=== PATIENT | female | born 1960 | race Caucasian/White ===

== ENCOUNTER 2021-05-21 23:02 | Emergency (ER) | payer BC, OTHER ==
[~2021-05-21] VITALS: Ht 165.1 cm; Wt 72.8 kg
--- NOTE | 2021-05-21 23:15 | NUR ---
Patient walked into ER A/Ox3 with steady gait c/o dizziness with nausea that started about 40mins [employer]. 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
[2021-05-21] MEDS ORDERED: ONDANSETRON ODT 4 MG TAB.RAPDIS ONE (23:28)
--- NOTE | 2021-05-21 23:29 | NUR ---
After patient was given zofran ODT patient vomited x1.
[2021-05-21] MEDS ORDERED: ONDANSETRON ODT 4 MG TAB.RAPDIS SL ONE (23:30)
[2021-05-21] MEDS ORDERED: IV NORMAL SALINE 1000 ML BAG IV ONE (23:30)
[2021-05-21] MEDS ORDERED: MECLIZINE HCL 25 MG TABLET PO ONE (23:30)
[2021-05-21] MEDS ORDERED: ONDANSETRON 4 MG/2 ML VIAL IV ONE (23:30)
--- NOTE | 2021-05-21 23:32 | NUR ---
After vomiting patient states "I feel better now."
--- NOTE | 2021-05-21 23:34 | NUR ---
Patient out of unit for ct scan via g[place].
[2021-05-21] MEDS ORDERED: ONDANSETRON 4 MG/2 ML VIAL ONE (23:39)
[2021-05-21] MEDS ORDERED: MECLIZINE HCL 25 MG TABLET ONE (23:39)
--- NOTE | 2021-05-21 23:44 | NUR ---
Patient back from ct scan with no distress noted.
[2021-05-21 23:50] LABS: HEMATOCRIT 42.5 % (31.2-41.9); MEAN CORPUSCULAR VOLUME 87.7 fL (75.5-95.3); PLATELET COUNT (AUTO) 221 K/uL (179-408)
[2021-05-22 00:05] LABS: CREATININE 0.8 mg/dL (0.6-1.3); POTASSIUM 3.8 mmol/L (3.5-5.1)
[2021-05-22 00:10] LABS: BILIRUBIN,DIRECT 0.1 mg/dL (0.0-0.2); BILIRUBIN,TOTAL 0.3 mg/dL (0.2-1.0); TOTAL PROTEIN, SERUM 7.9 g/dL (6.4-8.2)
[2021-05-22 00:18] LABS: *BILIRUBIN,URIN NEGATIVE (NEGATIVE); *BLOOD, URINE NEGATIVE (NEGATIVE); *CLARITY,URINE CLEAR (CLEAR); *COLOR,URINE YELLOW (YELLOW); *KETONES,URINE NEGATIVE (NEGATIVE); *UROBILINOGEN,URINE 0.2 E.U./dl (NORMAL); LEUKOCYTE ESTERASE ,URINE 1+ (NEGATIVE); NITRITE, URINE NEGATIVE (NEGATIVE); UGLUCOSE NEGATIVE (NEGATIVE)
[2021-05-22 00:29] LABS: BACTERIA,URINE NONE SEEN /HPF (NONE SEEN); RBC,URINE NONE SEEN /HPF (0-3); SQUAMOUS EPITHELIAL CELL,UR FEW /HPF (NONE SEEN)
[2021-05-22 00:34] LABS: *CANNABINOID, URINE NEGATIVE (NEGATIVE); *COCCAINE, URINE NEGATIVE (NEGATIVE); *OPIATE, URINE NEGATIVE (NEGATIVE); *PHENCYCLIDINE SCREEN,URINE NEGATIVE (NEGATIVE)
[2021-05-22 00:42] LABS: THYROID STIMULATING HORMONE 1.609 mIU/mL (0.358-3.740)
[2021-05-22 01:10] LABS: *AMPHETAMINE, URINE NEGATIVE (NEGATIVE)
--- NOTE | 2021-05-22 01:40 | NUR ---
Patient states "My dizziness is gone." Patient able to ambulate around unit with steady gait.
[2021-05-22] MEDS ORDERED: MECL-159 PO (02:24)
[2021-05-22] MEDS ORDERED: NITR100C11 PO (02:24)
--- NOTE | 2021-05-22 02:33 | NUR ---
IV removed. Catheter intact and site benign. Pressure and 4x4 gauze applied to site. No bleeding noted.
--- NOTE | 2021-05-22 02:56 | NUR ---
Patient discharged to home in stable condition with taking patient home. Written and verbal after care instructions given. Patient verbalizes understanding of instructions. Stressed follow up or return to ER for worsening s/s.
[2021-05-22 02:57] VITALS: BP 135/68
== END 2021-05-22 02:57 | disposition home or self-care (01) ==
LOC: ER 23:02
DX: R42 Dizziness and giddiness (principal); N39.0 Urinary tract infection, site not specified; Z83.3 Family history of diabetes mellitus; Z82.49 Family history of ischemic heart disease and other diseases of the circulatory system; R00.1 Bradycardia, unspecified; Z90.710 Acquired absence of both cervix and uterus
CPT/HCPCS: 36415; 70450; 80048; 80076; 80307; 81001; 84443; 84484; 85025; 85730; 87086; 93005; 96361; 96374; 99285; J2405; 70030-TC; A4663; J7030; J8597; Q0162

== ENCOUNTER 2021-07-22 15:13 | Outpatient (CLI) | payer BC, OTHER ==
[~2021-07-22 15:13] MED LIST: MECL-159 PO; NITR100C11 PO
== END 2021-07-22 23:59 | disposition home or self-care (01) ==
LOC: LAB 15:13
PROVIDERS: ATTEND Family Medicine
DX: N39.0 Urinary tract infection, site not specified (principal)
CPT/HCPCS: 87086

== ENCOUNTER 2021-12-26 21:27 | Emergency (ER) | payer BC, OTHER ==
[~2021-12-26] VITALS: Ht 154.9 cm; Wt 70.3 kg
--- NOTE | 2021-12-26 21:40 | NUR ---
Pt placed into room ED5 by product safety consultant, Pt on [facility] in pos of comfort connected to bedside monitor, VSS, SB with ectopy, RRR no m/g/r, lungs ctab Pt aaox4, completely lucid, complaining of mod to severe pain in upper abd/epigastric region. Pt believes itto be indigestion. EKG normal, line and labs ordered. Pt denies any cardiac hx and doesnt take any meds.
--- NOTE | 2021-12-26 21:45 | NUR ---
US tech at bedside to perform diagnostic exam.
--- NOTE | 2021-12-26 21:55 | NUR ---
Pt provided urine sample, sent to lab.
[2021-12-26 22:02] LABS: *BILIRUBIN,URIN NEGATIVE (NEGATIVE); *BLOOD, URINE NEGATIVE (NEGATIVE); *CLARITY,URINE CLEAR (CLEAR); *COLOR,URINE YELLOW (YELLOW); *KETONES,URINE NEGATIVE (NEGATIVE); *UROBILINOGEN,URINE 0.2 E.U./dl (NORMAL); LEUKOCYTE ESTERASE ,URINE 2+ (NEGATIVE); NITRITE, URINE NEGATIVE (NEGATIVE); UGLUCOSE NEGATIVE (NEGATIVE)
--- NOTE | 2021-12-26 22:10 | NUR ---
US tech states that exam is neg but that pt does have a fatty liver. ED discussed dispo with pt at length and pt is informed that we are waiting for repoeat trop results before we can DC her home accompanied by .
[2021-12-26] MEDS ORDERED: HYDROMORPHONE 1 MG/1 ML DISP.SYRIN IV ONE (22:15)
[2021-12-26] MEDS ORDERED: ONDANSETRON 4 MG/2 ML VIAL IV ONE (22:15)
[2021-12-26] MEDS ORDERED: KETOROLAC TROMETHAMINE 30 MG INJ IVP ONE (22:15)
[2021-12-26 22:17] LABS: BACTERIA,URINE FEW /HPF (NONE SEEN); RBC,URINE 0-3 /HPF (0-3)
[2021-12-26 22:18] LABS: SQUAMOUS EPITHELIAL CELL,UR FEW /HPF (NONE SEEN)
[2021-12-26 22:19] LABS: *URINE HCG, QUAL NEGATIVE (NEGATIVE)
[2021-12-26] MEDS ORDERED: HYDROMORPHONE 1 MG/1 ML DISP.SYRIN ONE (22:25)
[2021-12-26 22:26] LABS: HEMATOCRIT 40.4 % (31.2-41.9); MEAN CORPUSCULAR HEMOGLOBIN 29.3 uug (24.7-32.8); MEAN CORPUSCULAR VOLUME 85.7 fL (75.5-95.3); PLATELET COUNT (AUTO) 260 K/uL (179-408)
[2021-12-26] MEDS ORDERED: ONDANSETRON 4 MG/2 ML VIAL ONE (22:26)
[2021-12-26] MEDS ORDERED: KETOROLAC TROMETHAMINE 30 MG INJ ONE (22:26)
[2021-12-26 22:35] LABS: CARBON DIOXIDE 28 mmol/L (21-32); CHLORIDE 106 mmol/L (98-107); CREATININE 0.7 mg/dL (0.6-1.3); GLUCOSE 95 mg/dL (74-106); POTASSIUM 3.9 mmol/L (3.5-5.1); UREA NITROGEN, BLOOD 12 mg/dL (7-18)
[2021-12-26 22:43] LABS: ALANINE AMINOTRANSFERASE 50 U/L (14-59); ALKALINE PHOSPHATASE 71 U/L (50-136); ASPARTATE AMINOTRANSFERASE 23 U/L (15-37); BILIRUBIN,DIRECT < 0.1 mg/dL (0.0-0.2); BILIRUBIN,TOTAL 0.4 mg/dL (0.2-1.0); TOTAL PROTEIN, SERUM 7.5 g/dL (6.4-8.2)
[2021-12-26 22:52] LABS: LIPASE 82 U/L (73-393)
--- NOTE | 2021-12-26 23:20 | NUR ---
Repeat trop drawn by labor and employment paralegal without difficulty.
[2021-12-27] MEDS ORDERED: ONDA4TAB5 PO (00:47)
[2021-12-27] MEDS ORDERED: HYDR-4209 PO (00:47)
--- NOTE | 2021-12-27 01:00 | NUR ---
EDMD at bedside discussing dispo at length with pt and giving detailed aftercare instructions. Pt confirmed understanding of aftercare.
--- NOTE | 2021-12-27 01:45 | NUR ---
Pt given DC thorough dc instructions and med info. Pt confirmed understanding of instuctions and states that she feels better. Work note was given by EDMD for 2 days, to return back to work on tuesday. VSS, 140/60, 97% RA, 16rpm 66bpm. Pt states that she has had asymptomatic SB her entire life. No s/sx of distress present, Pt signed out and ambulated out of dept with steady gait. Denies any sob, n/v, only mild pain and slight dizziness due to the dilaudid.
[2021-12-27 02:49] VITALS: BP 140/60
== END 2021-12-27 01:45 | disposition home or self-care (01) ==
LOC: ER 21:27
DX: R10.11 Right upper quadrant pain (principal); Z90.710 Acquired absence of both cervix and uterus; M06.9 Rheumatoid arthritis, unspecified; M81.0 Age-related osteoporosis without current pathological fracture; Z20.822 Contact with and (suspected) exposure to COVID-19; R00.1 Bradycardia, unspecified
CPT/HCPCS: 99285; 96374; 76705; 71045; 96375; 87426; 80076; 80048; 81001; 84703; 83690; 85025; 85730; 87086; 84484 ×2; 36415 ×2; 93005; J1885; J2405; J1170; A4663

== ENCOUNTER 2022-07-27 15:36 | Outpatient (CLI) | payer BC, OTHER ==
[~2022-07-27 15:36] MED LIST changes: +HYDR-4209 PO; +ONDA4TAB5 PO
== END 2022-07-27 23:59 | disposition home or self-care (01) ==
LOC: RAD 15:36
PROVIDERS: ATTEND Family Medicine
DX: R07.9 Chest pain, unspecified (principal); T75.89XA Other specified effects of external causes, initial encounter; X58.XXXA Exposure to other specified factors, initial encounter; Y93.89 Activity, other specified; Y92.89 Other specified places as the place of occurrence of the external cause; Y99.8 Other external cause status
CPT/HCPCS: 71046

== ENCOUNTER 2023-11-02 21:32 | Emergency (ER) | payer BC, OTHER ==
[~2023-11-02] VITALS: Ht 162.6 cm; Wt 71.7 kg
[2023-11-02 22:49] LABS: BASOPHILS # (AUTO) 0.3 K/UL (0.0-0.2); BASOPHILS % (AUTO) 4.7 % (0.0-2.0); DIFFERENTIAL COMMENT 0; EOSINOPHILS # (AUTO) 0.3 K/uL (0.0-0.7); EOSINOPHILS % (AUTO) 4.5 % (0.0-7.0); HEMATOCRIT 42.7 % (31.2-41.9); HEMOGLOBIN 14.7 g/dL (10.9-14.3); LYMPHOCYTES # (AUTO) 1.1 K/uL (0.8-4.8); LYMPHOCYTES % (AUTO) 17.7 % (20.5-51.5); MEAN CORPUSCULAR HEMOGLOBIN 30.2 uug (24.7-32.8); MEAN CORPUSCULAR HGB CONC 34 g/dL (32.3-35.6); MONOCYTES # (AUTO) 0.3 K/uL (0.1-1.30); MONOCYTES % (AUTO) 5.1 % (0.0-11.0); NEUTROPHILS # (AUTO) 4.3 K/uL (1.8-8.9); PLATELET COUNT (AUTO) 239 K/uL (179-408); RED BLOOD CELL COUNT(AUTO) 4.86 MIL/uL (3.63-4.92); RED CELL DISTRIBUTION WIDTH 14.2 % (12.3-17.7); WHITE BLOOD COUNT (AUTO) 6.3 K/uL (3.8-11.8)
[2023-11-02 23:01] LABS: CALCIUM 9.4 mg/dL (8.5-10.1); CREATININE 0.7 mg/dL (0.6-1.3)
[2023-11-02 23:06] LABS: BILIRUBIN,DIRECT 0.1 mg/dL (0.0-0.2); BILIRUBIN,TOTAL 0.5 mg/dL (0.2-1.0); TOTAL PROTEIN, SERUM 7.7 g/dL (6.4-8.2)
[2023-11-02] MEDS ORDERED: SODI354S PO (23:36)
[2023-11-02 23:49] VITALS: BP 138/90; TEMP 98; O2SAT 98
== END 2023-11-02 23:50 | disposition home or self-care (01) ==
LOC: ER 21:34
DX: R10.9 Unspecified abdominal pain (principal); Z90.49 Acquired absence of other specified parts of digestive tract; Z79.899 Other long term (current) drug therapy
CPT/HCPCS: 36415; 83690; 85025; 85651; A4606; A4663

== ENCOUNTER 2024-02-14 14:21 | Outpatient (CLI) | payer BC, OTHER ==
[~2024-02-14 14:21] MED LIST changes: +SODI354S PO
[2024-02-14 14:51] LABS: BASOPHILS % (AUTO) 0.3 % (0.0-2.0); EOSINOPHILS # (AUTO) 0.1 K/uL (0.0-0.7); EOSINOPHILS % (AUTO) 0.8 % (0.0-7.0); LYMPHOCYTES % (AUTO) 31.9 % (20.5-51.5); MEAN CORPUSCULAR HEMOGLOBIN 29.3 uug (24.7-32.8); MEAN CORPUSCULAR HGB CONC 33 g/dL (32.3-35.6); MONOCYTES # (AUTO) 0.6 K/uL (0.1-1.30); MONOCYTES % (AUTO) 9.3 % (0.0-11.0); NEUTROPHILS # (AUTO) 3.7 K/uL (1.8-8.9); NEUTROPHILS % (AUTO) 57.7 % (38.5-71.5); PLATELET COUNT (AUTO) 232 K/uL (179-408); RED BLOOD CELL COUNT(AUTO) 4.77 MIL/uL (3.63-4.92); RED CELL DISTRIBUTION WIDTH 14.3 % (12.3-17.7); WHITE BLOOD COUNT (AUTO) 6.4 K/uL (3.8-11.8)
[2024-02-14 14:56] LABS: *BILIRUBIN,URIN NEGATIVE (NEGATIVE); *BLOOD, URINE NEGATIVE (NEGATIVE); *CLARITY,URINE CLEAR (CLEAR); *COLOR,URINE YELLOW (YELLOW); *KETONES,URINE NEGATIVE (NEGATIVE); *PROTEIN,URINE NEGATIVE (NEGATIVE); *UROBILINOGEN,URINE 0.2 E.U./dl (NORMAL); LEUKOCYTE ESTERASE ,URINE NEGATIVE (NEGATIVE); NITRITE, URINE NEGATIVE (NEGATIVE); UGLUCOSE NEGATIVE (NEGATIVE)
[2024-02-14 15:13] LABS: ALBUMIN 3.7 g/dL (3.4-5.0); BILIRUBIN,TOTAL 0.6 mg/dL (0.2-1.0); CALCIUM 9.1 mg/dL (8.5-10.1); CREATININE 0.5 mg/dL (0.6-1.3); POTASSIUM 4.1 mmol/L (3.5-5.1); TOTAL PROTEIN, SERUM 7.2 g/dL (6.4-8.2)
[2024-02-14 15:14] LABS: DIFFERENTIAL COMMENT 1
== END 2024-02-14 23:59 | disposition home or self-care (01) ==
LOC: LAB 14:21
PROVIDERS: ATTEND Internal Medicine Gastroenterology
DX: Z01.818 Encounter for other preprocedural examination (principal); R10.9 Unspecified abdominal pain; I70.0 Atherosclerosis of aorta
CPT/HCPCS: 36415; 71046; 85025; 85730; A4663; J7120

== ENCOUNTER 2024-02-17 05:59 | Day surgery (SDC) | payer BC, OTHER ==
[2024-02-17] MEDS ORDERED: PROPOFOL 200 MG/20 ML BOTTLE ONE (07:00)
[2024-02-17 09:40] VITALS: TEMP 97.7
== END 2024-02-17 10:00 | disposition home or self-care (01) ==
LOC: DS 05:59
PROVIDERS: ATTEND Internal Medicine Gastroenterology
DX: K59.00 Constipation, unspecified (principal); R10.9 Unspecified abdominal pain; Z86.010 Personal history of colon polyps; K64.8 Other hemorrhoids; M19.90 Unspecified osteoarthritis, unspecified site; M81.0 Age-related osteoporosis without current pathological fracture; Z87.440 Personal history of urinary (tract) infections; Z90.710 Acquired absence of both cervix and uterus; Z98.890 Other specified postprocedural states; Z79.899 Other long term (current) drug therapy; Z83.3 Family history of diabetes mellitus
CPT/HCPCS: 45380; 88305; 93005; J3490; J0461

== ENCOUNTER 2024-02-25 17:54 | Emergency (ER) | payer BC, OTHER ==
[~2024-02-25] VITALS: Ht 162.6 cm; Wt 70.3 kg
[2024-02-25] MEDS ORDERED: FLEET ENEMA 133 ML BOTTLE RC ONE (18:52)
[2024-02-25] MEDS: FLEET ENEMA 133 ML BOTTLE RC ONE (19:03)
[2024-02-25 19:39] VITALS: BP 142/70; TEMP 98; O2SAT 99
== END 2024-02-25 19:33 | disposition home or self-care (01) ==
LOC: ER 17:57
DX: K56.41 Fecal impaction (principal); Z90.49 Acquired absence of other specified parts of digestive tract; Z79.891 Long term (current) use of opiate analgesic; Z79.899 Other long term (current) drug therapy
CPT/HCPCS: A4606; A4663

== ENCOUNTER 2024-04-08 23:47 | Emergency (ER) | payer BC, OTHER ==
[~2024-04-08] VITALS: Ht 162.6 cm; Wt 64.4 kg
[2024-04-09 00:15] LABS: BASOPHILS % (AUTO) 0.3 % (0.0-2.0); EOSINOPHILS % (AUTO) 0.5 % (0.0-7.0); HEMATOCRIT 41.5 % (31.2-41.9); HEMOGLOBIN 14.2 g/dL (10.9-14.3); LYMPHOCYTES # (AUTO) 2.4 K/uL (0.8-4.8); LYMPHOCYTES % (AUTO) 34.6 % (20.5-51.5); MEAN CORPUSCULAR HEMOGLOBIN 30.7 uug (24.7-32.8); MEAN CORPUSCULAR HGB CONC 34 g/dL (32.3-35.6); MEAN CORPUSCULAR VOLUME 89.8 fL (75.5-95.3); MONOCYTES # (AUTO) 0.5 K/uL (0.1-1.30); MONOCYTES % (AUTO) 7.5 % (0.0-11.0); NEUTROPHILS % (AUTO) 57.1 % (38.5-71.5); PLATELET COUNT (AUTO) 247 K/uL (179-408); RED BLOOD CELL COUNT(AUTO) 4.63 MIL/uL (3.63-4.92); RED CELL DISTRIBUTION WIDTH 14.3 % (12.3-17.7); WHITE BLOOD COUNT (AUTO) 7.1 K/uL (3.8-11.8)
[2024-04-09] MEDS ORDERED: ACETAMINOPHEN 500 MG TABLET ONE (00:18)
[2024-04-09] MEDS: ACETAMINOPHEN 500 MG TABLET PO ONE (00:19)
[2024-04-09 00:38] LABS: ALANINE AMINOTRANSFERASE 26 U/L (14-59); ALBUMIN 3.8 g/dL (3.4-5.0); ALKALINE PHOSPHATASE 71 U/L (50-136); ASPARTATE AMINOTRANSFERASE 18 U/L (15-37); BILIRUBIN,DIRECT 0.1 mg/dL (0.0-0.2); BILIRUBIN,TOTAL 7.7 mg/dL (0.2-1.0); CALCIUM 9.3 mg/dL (8.5-10.1); CARBON DIOXIDE 27 mmol/L (21-32); CHLORIDE 106 mmol/L (98-107); CREATININE 0.6 mg/dL (0.6-1.3); GLUCOSE 136 mg/dL (74-106); POTASSIUM 3.7 mmol/L (3.5-5.1); SODIUM SERUM 143 mmol/L (136-145); TOTAL PROTEIN, SERUM 7.3 g/dL (6.4-8.2); UREA NITROGEN, BLOOD 16 mg/dL (7-18)
[2024-04-09 00:43] LABS: THYROID STIMULATING HORMONE 2.191 mIU/mL (0.358-3.740)
[2024-04-09 00:50] LABS: MAGNESIUM 2.3 mg/dL (1.8-2.4)
[2024-04-09] MEDS ORDERED: LISI10TA29 PO (00:56)
[2024-04-09] MEDS ORDERED: LISINOPRIL 10 MG TABLET ONE (00:59)
[2024-04-09] MEDS: LISINOPRIL 10 MG TABLET PO ONE (01:04)
[2024-04-09 01:25] VITALS: BP 140/60; TEMP 98; O2SAT 98
== END 2024-04-09 01:26 | disposition home or self-care (01) ==
LOC: ER 23:52
DX: R42 Dizziness and giddiness (principal); I10 Essential (primary) hypertension; R00.1 Bradycardia, unspecified; M06.9 Rheumatoid arthritis, unspecified; Z79.899 Other long term (current) drug therapy; Z90.710 Acquired absence of both cervix and uterus; Z88.7 Allergy status to serum and vaccine
CPT/HCPCS: 36415; 71045; 83735; 84443; 84484; 85025; 85730; A4606; A4663; A9150

== ENCOUNTER 2024-05-03 03:17 | Emergency (ER) | payer BC, OTHER ==
[~2024-05-03] VITALS: Ht 165.1 cm; Wt 68.0 kg
[~2024-05-03 03:17] MED LIST changes: +LISI10TA29 PO
[2024-05-03] MEDS ORDERED: ONDANSETRON 4 MG/2 ML VIAL ONE (04:05)
[2024-05-03 04:06] LABS: BASOPHILS % (AUTO) 0.1 % (0.0-2.0); EOSINOPHILS % (AUTO) 0.2 % (0.0-7.0); HEMATOCRIT 44.3 % (31.2-41.9); HEMOGLOBIN 15.4 g/dL (10.9-14.3); LYMPHOCYTES # (AUTO) 0.4 K/uL (0.8-4.8); LYMPHOCYTES % (AUTO) 4.7 % (20.5-51.5); MEAN CORPUSCULAR HGB CONC 35 g/dL (32.3-35.6); MEAN CORPUSCULAR VOLUME 89.2 fL (75.5-95.3); MONOCYTES # (AUTO) 0.6 K/uL (0.1-1.30); MONOCYTES % (AUTO) 7.2 % (0.0-11.0); NEUTROPHILS # (AUTO) 7.3 K/uL (1.8-8.9); NEUTROPHILS % (AUTO) 87.8 % (38.5-71.5); PLATELET COUNT (AUTO) 216 K/uL (179-408); RED BLOOD CELL COUNT(AUTO) 4.96 MIL/uL (3.63-4.92); RED CELL DISTRIBUTION WIDTH 14.7 % (12.3-17.7); WHITE BLOOD COUNT (AUTO) 8.4 K/uL (3.8-11.8)
[2024-05-03] MEDS ORDERED: DIPHENOXYLATE HCL/ATROP SULF TABLET ONE (04:06)
[2024-05-03] MEDS: IV NORMAL SALINE 1000 ML BAG IV ONE (04:09)
[2024-05-03] MEDS: DIPHENOXYLATE HCL/ATROP SULF TABLET PO ONE (04:09)
[2024-05-03] MEDS: ONDANSETRON 4 MG/2 ML VIAL IV ONE (04:09)
[2024-05-03 04:19] LABS: ALBUMIN 4.4 g/dL (3.4-5.0); BILIRUBIN,DIRECT 0.2 mg/dL (0.0-0.2); BILIRUBIN,TOTAL 1.1 mg/dL (0.2-1.0); CALCIUM 9.2 mg/dL (8.5-10.1); CREATININE 0.9 mg/dL (0.6-1.3); POTASSIUM 3.7 mmol/L (3.5-5.1); TOTAL PROTEIN, SERUM 8.2 g/dL (6.4-8.2)
[2024-05-03] MEDS ORDERED: LORAZEPAM 2 MG/1 ML VIAL ONE (04:19)
[2024-05-03] MEDS: LORAZEPAM 2 MG/1 ML VIAL IV ONE (04:21)
[2024-05-03] MEDS ORDERED: DICY20TA11 PO (04:44)
[2024-05-03] MEDS ORDERED: CYCL10TA9 PO (04:44)
[2024-05-03] MEDS ORDERED: ONDA4TAB11 PO (04:44)
[2024-05-03] MEDS ORDERED: DICYCLOMINE HCL LIQ 10 MG/5 ML UDC ONE (04:50)
[2024-05-03] MEDS: DICYCLOMINE HCL LIQ 10 MG/5 ML UDC PO ONE (04:56)
[2024-05-03 05:39] VITALS: BP 133/69; TEMP 98.3; O2SAT 99
== END 2024-05-03 05:39 | disposition home or self-care (01) ==
LOC: ER 03:19
DX: R55 Syncope and collapse (principal); M06.9 Rheumatoid arthritis, unspecified; R19.7 Diarrhea, unspecified; R53.1 Weakness; Z90.710 Acquired absence of both cervix and uterus; Z79.899 Other long term (current) drug therapy; Z88.7 Allergy status to serum and vaccine
CPT/HCPCS: 99284; 96374; 96361; 96375; 80076; 80048; 83690; 85025; 36415; 93005; J2060; J2405; J7040; A4606; A4663

== ENCOUNTER 2024-05-07 16:02 | Emergency (ER) | payer BC, OTHER ==
[~2024-05-07] VITALS: Ht 154.9 cm; Wt 68.0 kg
[~2024-05-07 16:02] MED LIST changes: +CYCL10TA9 PO; +DICY20TA11 PO; +ONDA4TAB11 PO
[2024-05-07] MEDS: IV NORMAL SALINE 1000 ML BAG IV ONE ×2 (16:15→19:27)
[2024-05-07 16:26] LABS: BASOPHILS % (AUTO) 0.7 % (0.0-2.0); EOSINOPHILS % (AUTO) 0.5 % (0.0-7.0); HEMATOCRIT 43.2 % (31.2-41.9); HEMOGLOBIN 14.5 g/dL (10.9-14.3); LYMPHOCYTES # (AUTO) 1.8 K/uL (0.8-4.8); LYMPHOCYTES % (AUTO) 31.7 % (20.5-51.5); MEAN CORPUSCULAR HEMOGLOBIN 30.2 uug (24.7-32.8); MEAN CORPUSCULAR HGB CONC 34 g/dL (32.3-35.6); MONOCYTES # (AUTO) 0.6 K/uL (0.1-1.30); MONOCYTES % (AUTO) 11.3 % (0.0-11.0); NEUTROPHILS # (AUTO) 3.1 K/uL (1.8-8.9); NEUTROPHILS % (AUTO) 55.8 % (38.5-71.5); PLATELET COUNT (AUTO) 222 K/uL (179-408); RED CELL DISTRIBUTION WIDTH 14.3 % (12.3-17.7); WHITE BLOOD COUNT (AUTO) 5.6 K/uL (3.8-11.8)
[2024-05-07 16:37] LABS: DIFFERENTIAL COMMENT 1
[2024-05-07 16:43] LABS: CALCIUM 8.8 mg/dL (8.5-10.1); CARBON DIOXIDE 24 mmol/L (21-32); CHLORIDE 104 mmol/L (98-107); CREATININE 0.6 mg/dL (0.6-1.3); GLUCOSE 135 mg/dL (74-106); POTASSIUM 4.1 mmol/L (3.5-5.1); SODIUM SERUM 140 mmol/L (136-145); UREA NITROGEN, BLOOD 11 mg/dL (7-18)
[2024-05-07 17:03] LABS: *BILIRUBIN,URIN NEGATIVE (NEGATIVE); *BLOOD, URINE NEGATIVE (NEGATIVE); *CLARITY,URINE CLEAR (CLEAR); *COLOR,URINE YELLOW (YELLOW); *KETONES,URINE NEGATIVE (NEGATIVE); *PROTEIN,URINE NEGATIVE (NEGATIVE); *UROBILINOGEN,URINE 0.2 E.U./dl (NORMAL); LEUKOCYTE ESTERASE ,URINE TRACE (NEGATIVE); NITRITE, URINE NEGATIVE (NEGATIVE); RBC,URINE 0-3 /HPF (0-3); UGLUCOSE NEGATIVE (NEGATIVE)
[2024-05-07 17:06] LABS: ALANINE AMINOTRANSFERASE 39 U/L (14-59); ALBUMIN 3.7 g/dL (3.4-5.0); ALKALINE PHOSPHATASE 64 U/L (50-136); ASPARTATE AMINOTRANSFERASE 21 U/L (15-37); BILIRUBIN,DIRECT 0.2 mg/dL (0.0-0.2); BILIRUBIN,TOTAL 0.5 mg/dL (0.2-1.0); TOTAL PROTEIN, SERUM 7.3 g/dL (6.4-8.2)
[2024-05-07 19:39] LABS: BASOPHILS % (AUTO) 0.9 % (0.0-2.0); EOSINOPHILS % (AUTO) 0.5 % (0.0-7.0); HEMATOCRIT 40.5 % (31.2-41.9); HEMOGLOBIN 13.6 g/dL (10.9-14.3); LYMPHOCYTES # (AUTO) 1.9 K/uL (0.8-4.8); LYMPHOCYTES % (AUTO) 34.7 % (20.5-51.5); MEAN CORPUSCULAR HEMOGLOBIN 30.5 uug (24.7-32.8); MEAN CORPUSCULAR HGB CONC 34 g/dL (32.3-35.6); MEAN CORPUSCULAR VOLUME 90.5 fL (75.5-95.3); MONOCYTES # (AUTO) 0.6 K/uL (0.1-1.30); MONOCYTES % (AUTO) 10.8 % (0.0-11.0); NEUTROPHILS # (AUTO) 2.8 K/uL (1.8-8.9); NEUTROPHILS % (AUTO) 53.1 % (38.5-71.5); PLATELET COUNT (AUTO) 205 K/uL (179-408); RED BLOOD CELL COUNT(AUTO) 4.47 MIL/uL (3.63-4.92); RED CELL DISTRIBUTION WIDTH 14.1 % (12.3-17.7); WHITE BLOOD COUNT (AUTO) 5.3 K/uL (3.8-11.8)
[2024-05-07 19:44] LABS: DIFFERENTIAL COMMENT 1
[2024-05-07 19:52] LABS: CALCIUM 8.4 mg/dL (8.5-10.1); CREATININE 0.6 mg/dL (0.6-1.3); POTASSIUM 3.8 mmol/L (3.5-5.1)
[2024-05-07 21:15] VITALS: BP 145/85; O2SAT 97
[2024-05-07] MEDS ORDERED: AZITHROMYCIN IV 500 MG in IV DEXTROSE 5% 250 ML IV ONE (21:15)
== END 2024-05-07 21:15 | disposition home or self-care (01) ==
LOC: ER 16:02
DX: E86.0 Dehydration (principal); I10 Essential (primary) hypertension; M06.9 Rheumatoid arthritis, unspecified; M81.0 Age-related osteoporosis without current pathological fracture; Z79.899 Other long term (current) drug therapy; Z90.710 Acquired absence of both cervix and uterus; Z88.7 Allergy status to serum and vaccine
CPT/HCPCS: 99285; 96360; 96361; 71045; 80076; 80048 ×2; 81001; 85025 ×2; 84145; 85730; 87040 ×2; 84484 ×2; 36415; 93005; 83605; J7040; A4606; A4663

== ENCOUNTER 2024-12-27 13:52 | Outpatient (CLI) | payer BC, OTHER | END 2024-12-27 23:59 | disposition home or self-care (01) | LOC: CT 13:52 | PROVIDERS: ATTEND Family Medicine | DX: H69.93 Unspecified Eustachian tube disorder, bilateral (principal); R42 Dizziness and giddiness | CPT/HCPCS: 70450; 70486 ==

== ENCOUNTER 2025-03-13 22:26 | Inpatient (IN) | payer BC, OTHER ==
[~2025-03-13] VITALS: Ht 154.9 cm; Wt 64.4 kg
[2025-03-13 23:03] LABS: PLATELET COUNT (AUTO) 235 K/uL (179-408); RED BLOOD CELL COUNT(AUTO) 4.72 MIL/uL (3.63-4.92); RED CELL DISTRIBUTION WIDTH 14.4 % (12.3-17.7); WHITE BLOOD COUNT (AUTO) 7.1 K/uL (3.8-11.8)
[2025-03-13 23:08] LABS: CREATININE 0.7 mg/dL (0.6-1.3); SODIUM SERUM 142 mmol/L (136-145); UREA NITROGEN, BLOOD 17 mg/dL (7-18)
[2025-03-13] MEDS ORDERED: IOHEXOL 350 100 ML INFUS..BTL ONE (23:12)
[2025-03-13] MEDS ORDERED: SWABABLE VALVE TRANSFER SET EA MC ONE (23:12)
[2025-03-13] MEDS ORDERED: IV NORMAL SALINE 250 ML IV ONE (23:12)
[2025-03-13 23:14] LABS: ASPARTATE AMINOTRANSFERASE 14 U/L (15-37); TOTAL PROTEIN, SERUM 7.4 g/dL (6.4-8.2)
[2025-03-14] VITALS (7 sets, daily range): BP systolic 113–180; BP diastolic 34–66; TEMP 97.6–98; O2SAT 95–99
[2025-03-14] MEDS ORDERED: ASPIRIN 325 MG TABLET ONE (00:11)
[2025-03-14] MEDS: ASPIRIN EC 325 MG TABLET.DR PO STA (00:15)
[2025-03-14] MEDS ORDERED: REMEDY ESSENTIAL ZINC PASTE 113 GM TP PRN (01:45)
[2025-03-14] MEDS ORDERED: ACETAMINOPHEN 325 MG TABLET PO PRN (01:45)
[2025-03-14] MEDS ORDERED: ONDANSETRON 4 MG/2 ML VIAL IV PRN (01:45)
[2025-03-14] MEDS ORDERED: MECLIZINE HCL 25 MG TABLET PO PRN (01:45)
[2025-03-14] MEDS: ATORVASTATIN 40 MG TABLET PO SCH (02:58)
[2025-03-14] MEDS: PANTOPRAZOLE SODIUM 40 MG TABLET.DR PO SCH (06:48)
[2025-03-14 07:28] LABS: PLATELET COUNT (AUTO) 193 K/uL (179-408); RED BLOOD CELL COUNT(AUTO) 4.65 MIL/uL (3.63-4.92); RED CELL DISTRIBUTION WIDTH 14.5 % (12.3-17.7); WHITE BLOOD COUNT (AUTO) 6.5 K/uL (3.8-11.8)
[2025-03-14 07:42] LABS: ASPARTATE AMINOTRANSFERASE 11.0 U/L (15-37); CREATININE 0.5 mg/dL (0.6-1.3); SODIUM SERUM 139.0 mmol/L (136-145); TOTAL PROTEIN, SERUM 7.0 g/dL (6.4-8.2); UREA NITROGEN, BLOOD 16.0 mg/dL (7-18)
[2025-03-14 07:59] LABS: *BILIRUBIN,URIN NEGATIVE (NEGATIVE); *BLOOD, URINE NEGATIVE (NEGATIVE); *CLARITY,URINE CLEAR (CLEAR); *COLOR,URINE YELLOW (YELLOW); *KETONES,URINE NEGATIVE (NEGATIVE); *PROTEIN,URINE NEGATIVE (NEGATIVE); *UROBILINOGEN,URINE 0.2 E.U./dl (NORMAL); LEUKOCYTE ESTERASE ,URINE NEGATIVE (NEGATIVE); NITRITE, URINE NEGATIVE (NEGATIVE); UGLUCOSE NEGATIVE (NEGATIVE)
[2025-03-14] MEDS: ASPIRIN EC 81 MG TABLET.DR PO SCH (09:27)
[2025-03-14] MEDS ORDERED: IBUPROFEN 600 MG TABLET PO PRN (09:30)
[2025-03-14] MEDS ORDERED: LOSA25TA27 PO (09:46)
[2025-03-14] MEDS ORDERED: NAPR-1009 PO (09:47)
[2025-03-14] MEDS ORDERED: MAGN400C PO (09:48)
[2025-03-14] MEDS ORDERED: CALC-1026 PO (09:48)
[2025-03-14] MEDS ORDERED: CHOL100062 PO (09:48)
[2025-03-14] MEDS ORDERED: INSULIN REGULAR, HUMAN 300 UNITS/3 ML VIAL SQ PRN (15:45)
[2025-03-14] MEDS ORDERED: INSULIN REGULAR, HUMAN 1000 UNIT/10 ML VIAL SQ PRN (15:45)
[2025-03-14] MEDS ORDERED: DEXTROSE 50% 50 ML DISP.SYRIN IV PRN (15:45)
[2025-03-14] MEDS: BLOOD SUGAR DIAGNOSTIC 1 EACH STRIP VI SCH (17:48)
[2025-03-15] VITALS: BP 151/54; TEMP 97.6; O2SAT 96
[2025-03-15 04:00] VITALS: BP 145/44; TEMP 99; O2SAT 94
[2025-03-15] MEDS: LEVOTHYROXINE SODIUM 25 MCG TABLET PO SCH (06:18)
[2025-03-15 07:38] LABS: PLATELET COUNT (AUTO) 216 K/uL (179-408); RED BLOOD CELL COUNT(AUTO) 4.72 MIL/uL (3.63-4.92); RED CELL DISTRIBUTION WIDTH 14.4 % (12.3-17.7); WHITE BLOOD COUNT (AUTO) 5.8 K/uL (3.8-11.8)
[2025-03-15 07:54] LABS: CREATININE 0.6 mg/dL (0.6-1.3); SODIUM SERUM 140.0 mmol/L (136-145); UREA NITROGEN, BLOOD 16.0 mg/dL (7-18)
[2025-03-15 07:56] VITALS: BP 130/39; TEMP 98.1; O2SAT 98
[2025-03-15] MEDS: CALCIUM CARBONATE 500 MG TABLET PO SCH (09:11)
[2025-03-15] MEDS: LOSARTAN POTASSIUM 25 MG TABLET PO SCH (09:12)
[2025-03-15 11:25] VITALS: BP 139/48; TEMP 98.5; O2SAT 98
[2025-03-15] MEDS ORDERED: ATOR40TA PO (12:15)
[2025-03-15] MEDS ORDERED: LEVO25TA9 PO (12:15)
[2025-03-15] MEDS ORDERED: ASPI-618 PO (12:15)
[2025-03-15] MEDS ORDERED: MECL-159 PO (12:15)
[2025-03-15] MEDS ORDERED: CARB15DR12 RIGHT EAR (12:15)
[2025-03-15 15:58] VITALS: BP 136/47; TEMP 98.2; O2SAT 99
[2025-03-15] MEDS: CARBAMIDE PEROXIDE OTIC DROP 15 ML BOTTLE RIGHT EAR SCH (18:21)
[2025-03-15] MEDS ORDERED: MAGNESIUM OXIDE PO SCH (21:00)
[2025-03-15] MEDS ORDERED: MAGNESIUM OXIDE 400 MG TABLET PO SCH (21:00)
== END 2025-03-15 18:30 | disposition home or self-care (01) | DRG 66 ==
LOC: ER 22:28 → TELE3 03-14 01:40
PROVIDERS: ADMIT Nurse Practitioner Family; ATTEND Student in an Organized Health Care Education/Training Program
DX: I63.9 Cerebral infarction, unspecified (principal); R42 Dizziness and giddiness; I65.8 Occlusion and stenosis of other precerebral arteries; H81.92 Unspecified disorder of vestibular function, left ear; I10 Essential (primary) hypertension; R29.700 NIHSS score 0; M06.9 Rheumatoid arthritis, unspecified; E03.9 Hypothyroidism, unspecified; H61.21 Impacted cerumen, right ear; M81.0 Age-related osteoporosis without current pathological fracture; R73.03 Prediabetes; Z79.899 Other long term (current) drug therapy; Z90.710 Acquired absence of both cervix and uterus
CPT/HCPCS: 36415; 70450; 70496; 83735; 84100; 84443; 84484; 85025; 85730; 93307; A4663; G0378; J1815; Q9967